=== PATIENT | female | born 2005 | race Caucasian/White ===

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

== ENCOUNTER 2025-09-01 07:20 | Emergency (ER) | payer OTHER, SELFPAY ==
[2025-09-01 07:20] VITALS: BP 130/94; PULSE 78; RESP 16; TEMP 36.9; O2SAT 99; BMI 21.2
--- NOTE | 2025-09-01 07:27 | EX.ED.GENINJ ---
HPI History of Present Illness Chief Complaint: Laceration Detail of Chief Complaint: Wound distal radial side left ring finger Informant: patient Onset/Context/Timing Onset: Today and Hours Mechanism/Context: Work Related (Cut with a bread knife) Location of pain/injuries: Left hand (Left ring finger as previously described) Current Severity: Mild Maximum Severity: Mild Worsened by: Avulsion of tissue to subcutaneous fat Relieved by: Pressure Associated Symptoms Associated Symptoms: Negative for Parasthesias, Weakness, Loss of function or Inability to ambulate Narrative Narrative: Patient is a 20-year-old [id number]-ejrwealy female who presents with laceration to the radial distal side of her left ring finger. She has no other complaints. Tetanus Immunization: 5-10 years Prior similar symptoms: No Recent Illness/Hospitalization: No PFSH PFSH Home Medications ?Medication ?Instructions ?Recorded ?Last Taken ?Type NK 06/19/19 Unknown History Allergy/AdvReac Type Severity Reaction Status Date / Time No Known Allergies Allergy Verified 09/01/25 07:22 Social History Smoking Status: Never smoker ROS ROS ED Integumentary Reports other Details: Skin avulsion 1 cm x 1.3 cm Neurologic Neurologic: Denies paresthesias or weakness Hematologic/Lymphatic Hematologic/Lymphatic: Denies easy bleeding or easy bruising EXAM Physical Exam Const Vital Signs: 09/01/25 07:20 Temperature 98.4 F Temperature Source Oral Pulse Rate 78 Respiratory Rate 16 Blood Pressure 130/94 H Blood Pressure Mean 106 Pulse Ox 99 Oxygen Delivery Method Room Air Positive well nourished and well developed General Appearance ED: well developed HEENT atraumatic Eyes PERRL and EOMs intact bilaterally Resp normal respiratory effort Cardio regular rhythm Rate: regular rate Extremity Negative for normal to inspection Extremity Narrative: Skin avulsion distal radial side of the left ring finger. There is no subungual hematoma. Extensor and flexor mechanism intact. Capillary fill is normal. Neuro oriented x3 and CN's II-XII intact bilaterally Sensorium / Orientation: alert Psych mental status grossly normal and thought process normal Skin Skin Narrative: Skin avulsion to subcutaneous tissue. MDM MDM MDM Narrative Medical decision making narrative: Her bleeding when pressure is removed. Will have nurse cleanse wound place Gelfoam and dressing on it. She was referred to corporate care since this is a work-related injury. Tetanus is less than 10 years and does not need updated since it is a clean wound. There is no neurovasc compromise. Discharge Plan Triage Chief Complaint: Laceration ED Provider: Zach Crouch Dx/Rx/DC Orders Clinical Impression: Avulsion of skin of finger, Elevated blood pressure reading Instructions: ED Skin Tear (Skin Avulsion) Prescriptions: No Action NK Primary Care Provider: Juan A Hope Referrals: [facility] [Group of Physicians, Medical] - 2 Days for wound check Juan A Hope MD [Primary Care Provider, Pediatrics] Print Language: [place] Disposition Disposition: Home, Self Care
[2025-09-01 07:57] VITALS: BP 110/80; PULSE 67; RESP 16; TEMP 36.7; O2SAT 100
== END 2025-09-01 07:59 | disposition home or self-care (01) ==
LOC: ED 07:43
PROVIDERS: Emergency Provider Emergency Medicine; Visit Provider Emergency Medicine
DX: S61.215A Laceration without foreign body of left ring finger without damage to nail, initial encounter (principal); W26.0XXA Contact with knife, initial encounter; Y99.0 Civilian activity done for income or pay; R03.0 Elevated blood-pressure reading, without diagnosis of hypertension
CPT/HCPCS: 99282